=== PATIENT | male | born 1950 | race Caucasian/White ===

== ENCOUNTER 2024-04-11 10:29 | Day surgery (SDC) | payer MEDICARE, BC ==
[2024-04-11] VITALS (12 sets, daily range): BP systolic 109–138; BP diastolic 67–86; PULSE 64–85; RESP 16; TEMP 97.7; O2SAT 90–96
[~2024-04-11] VITALS: Ht 177.8 cm; Wt 77.7 kg
[2024-04-11 11:25] LABS: BASOPHILS # (AUTO) 0.1 X10'3 (0-0.2); BASOPHILS % (AUTO) 0.7 % (0-1); EOSINOPHILS # (AUTO) 0.1 X10'3 (0-0.9); EOSINOPHILS % (AUTO) 1.3 % (0-6); HEMATOCRIT 49.4 % (42.0-52.0); LYMPHOCYTES # (AUTO) 2.5 X10'3 (1.1-4.8); LYMPHOCYTES % (AUTO) 26.1 % (21-51); MEAN CORPUSCULAR HEMOGLOBIN 26.1 PG (27.0-31.0); MEAN CORPUSCULAR HGB CONC 32.4 g/dL (33.0-36.5); MEAN CORPUSCULAR VOLUME 80.6 FL (78-98); MEAN PLATELET VOLUME 8.2 FL (7.4-10.4); MONOCYTES # (AUTO) 0.9 X10'3 (0-0.9); MONOCYTES % (AUTO) 9.3 % (2-12); NEUTROPHILS # (AUTO) 5.9 X10'3 (1.8-7.7); NEUTROPHILS % (AUTO) 62.6 % (42-75); PLATELET COUNT 359 X10'3 (140-440); RED BLOOD COUNT 6.13 X10'6 (4.70-6.10); RED CELL DISTRIBUTION WIDTH 15.2 % (11.5-14.5); WHITE BLOOD COUNT 9.5 X10'3 (4.5-11.0)
[2024-04-11] MEDS ORDERED: probiotic (11:32)
[2024-04-11] MEDS ORDERED: MULT-1085 PO (11:32)
[2024-04-11] MEDS ORDERED: [UNRECOGNIZED DRUG - OTHER] (11:32)
[2024-04-11] MEDS ORDERED: ELDE350C (11:32)
[2024-04-11] MEDS ORDERED: APIX2.5T PO (11:32)
[2024-04-11] MEDS ORDERED: COLOSTRUM (11:32)
[2024-04-11] MEDS ORDERED: VITA1CAP PO (11:32)
[2024-04-11 11:33] LABS: ALBUMIN 3.6 G/DL (3.4-5.0); ANION GAP 6 (8-16); BLOOD UREA NITROGEN 21 MG/DL (7-18); BUN/CREATININE RATIO 22.8 (10.0-20.0); CALCIUM 8.5 MG/DL (8.5-10.1); CHLORIDE 108 MMOL/L (99-107); CREATININE 0.92 MG/DL (0.60-1.10); GLUCOSE 93 MG/DL (70-104); POTASSIUM 4.5 MMOL/L (3.5-5.1); SODIUM 140 MMOL/L (135-145); TOTAL CARBON DIOXIDE 25.6 MMOL/L (24-32); eCRCL 76 ML/MIN; eGFR 81 ML/MIN
[2024-04-11 11:39] LABS: APTT 25 SECONDS (22-32); PROTHROMBIN TIME 10.8 SECONDS (9.0-12.0)
[2024-04-11] MEDS ORDERED: iohexol 350MG/ML 100ml bottle IV ONE (11:45)
[2024-04-11] MEDS ORDERED: fentaNYL/PF 50MCG/1 ML 2ML syringe ONE (11:45)
[2024-04-11] MEDS ORDERED: LIDOcaine 1% 30ml preserv. free vial ONE (11:45)
[2024-04-11] MEDS ORDERED: midazolam 1 mg/ML 2ml injection ONE (11:45)
[2024-04-11] MEDS ORDERED: iohexol 350 MG/ML 50ML vial IV ONE (11:48)
[2024-04-11] MEDS: diphenhydrAMINE 25mg capsule PO PRN (11:58)
[2024-04-11] MEDS: LORazepam 0.5 MG tablet PO PRN (11:58)
[2024-04-11] MEDS: normal saline 1,000 ML IV SCH (11:59)
[2024-04-11 12:57] LABS: ISTAT HGB ART 15.6 g/dl (14.0-17.9); ISTAT Hct ART 46 %PCV (42-52); ISTAT O2 SATURATION ARTERIAL 89 % (95-98); ISTAT SOURCE ART
[2024-04-11] MEDS ORDERED: HYDROcodone/acetaminophen 5mg/325mg tablet PO PRN (13:20)
[2024-04-11] MEDS ORDERED: proCHLORperazine 10 MG/2 ml inj IV PRN (13:20)
[2024-04-11] MEDS ORDERED: HYDROcodone/acetaminophen 10/325mg tab PO PRN (13:20)
[2024-04-11] MEDS ORDERED: nitroGLYCERIN 0.4mg SUBLingual tab SL PRN (13:20)
[2024-04-11] MEDS ORDERED: ondansetron/PF 4mg/2ml inj IV PRN (13:20)
[2024-04-11] MEDS ORDERED: OXAZEpam 15mg capsule PO PRN (13:20)
[2024-04-11 14:33] LABS: ISTAT HGB MIX 15.3 g/dl (14.0-17.9); ISTAT Hct MIX 45 %PCV (42-52); ISTAT O2 SATURATION MIX VENOUS 59 % (60-80); ISTAT SOURCE VEN
== END 2024-04-11 18:44 | disposition home or self-care (01) ==
LOC: SSTAY O 10:29
PROVIDERS: ATTEND Internal Medicine Cardiovascular Disease
DX: R94.39 Abnormal result of other cardiovascular function study (principal); I25.10 Atherosclerotic heart disease of native coronary artery without angina pectoris; I42.9 Cardiomyopathy, unspecified; I27.20 Pulmonary hypertension, unspecified
CPT/HCPCS: 36415; 71046; 80048; 82803; 85014; 85025; 85610; 85730; 93005; 93460; 99152; 99153; A4615; A6258; C1751; C1760; C1769; J1644; J2001; J2250; J3010; J7030; Q0163; Q9967; Z7610; J3490